=== PATIENT | female | born 1995 | race Caucasian/White ===

== ENCOUNTER 2022-03-27 10:17 | Emergency (ER) | payer OTHER ==
[2022-03-27 10:35] VITALS: BP 123/78; PULSE 93; RESP 16; TEMP 98.2
--- NOTE | 2022-03-27 10:47 | ED ---
Upper Extremity HPI - General Chief Complaint: Extremity Injury, Upper Stated Complaint: [facility]-finger injury Time Seen by Provider: 03/27/22 10:37 Source: patient, RN notes reviewed Mode of arrival: ambulatory Limitations: no limitations - History of Present Illness Initial Comments: This is a 26-year-old female who presents to the emergency department for left pinky pain. 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 One of the bottles fell and landed on her finger. States that she noticed immediate bruising to the left pinky. She has since had difficulty moving it, and states that she wanted make sure it was not broken. Denies any fevers, chills, sore throat, cough, dyspnea, chest pain, pal pitations, abdominal pain, nausea, vomiting, diarrhea, back pain, or headaches. MD Complaint: Injury to:: left, finger Other Injuries: none Place: work - Related Data Allergies Allergy/AdvReac Type Severity Reaction Status Date / Time No Known Allergies Allergy Verified 03/27/22 10:35 Review of Systems ROS Statement: Those systems with pertinent positive or pertinent negative responses have been documented in the HPI. ROS Other: All systems not noted in ROS Statement are negative. Past Medical History Past Medical History: No Reported History History of Any Multi-Drug Resistant Organisms: None Reported Past Surgical History: No Surgical Hx Reported Past Psychological History: No Psychological Hx Reported Smoking Status: Never smoker Past Alcohol Use History: Occasional Past Drug Use History: None Reported General Exam Limitations: no limitations General appearance: alert, in no apparent distress Head exam: Present: atraumatic, normocephalic, normal inspection Respiratory exam: Present: normal lung sounds bilaterally. Absent: respiratory distress, wheezes, rales, rhonchi, stridor Cardiovascular Exam: Present: regular rate, normal rhythm, normal heart sounds. Absent: systolic murmur, diastolic murmur, rubs, gallop, clicks Extremities exam: Present: other (Mild swelling and ecchymosis to the palmar aspect of the left fifth finger. Full active and passive range of motion.) Neurological exam: Present: alert, oriented X3, CN II-XII intact Psychiatric exam: Present: normal affect, normal mood Skin exam: Present: warm, dry, intact, normal color. Absent: rash Course Vital Signs 03/27/22 10:31 Temperature 98.2 F Pulse Rate 93 Respiratory 16 Rate Blood Pressure 123/78 O2 Sat by Pulse 100 Oximetry Medical Decision Making - Medical Decision Making This is a 26-year-old female who presents to the emergency department for an injury to the left pinky finger. X-ray obtained revealing no acute osseous abnormalities. Advised the patient to apply ice for 10 minutes every 2-3 hours and to alternate with ibuprofen and Tylenol as needed for pain relief. She can wrap the hand or use a finger splint if she finds that beneficial. Return precautions reviewed in depth, the patient is instructed to return to the emergency department with any new, worsening, or concerning symptoms. Patient verbalized understanding. This case was discussed in detail with the attending ED physician. Presentation, findings, and treatment plan discussed in detail as well. - Radiology Data Radiology results: report reviewed, image reviewed Disposition Clinical Impression: Jammed interphalangeal joint of finger of left hand Disposition: HOME SELF-CARE Instructions (If sedation given, give patient instructions): Jammed Finger (ED) Additional Instructions: Return to the emergency department with any new, worsening, or concerning symptoms. Apply ice for 15-20 minutes every 2-3 hours and take ibuprofen and Tylenol as needed for pain relief. You may wrap the hand or use a finger splint if you find it helpful. Is patient prescribed a controlled substance at d/c from ED?: No Referrals: None,Stated [Primary Care Provider] - 1-2 days
--- NOTE | 2022-03-27 11:20 | XR ---
EXAMINATION TYPE: XR finger LT DATE OF EXAM: 03/27/2022 11:00 AM INDICATION: Patient age:Female; 26 years old; Reason for study: Injury to left pinky finger; [facility]. COMPARISON: None TECHNIQUE: Frontal, lateral and oblique views of the left fifth digit were obtained. FINDINGS: Normal alignment of the visualized joints. No acute osseous pathology is identified. No os seous erosions. There is focal soft tissue swelling along the palmar aspect of the mid fifth digit. N o radiopaque foreign bodies. IMPRESSION: 1. No acute osseous pathology. 2. Focal soft tissue swelling along the palmar aspect of the mid fifth digit.
== END 2022-03-27 11:40 | disposition home or self-care (01) ==
LOC: EC 10:17
DX: S90.122A Contusion of left lesser toe(s) without damage to nail, initial encounter (principal); W23.0XXA Caught, crushed, jammed, or pinched between moving objects, initial encounter; Y92.512 Supermarket, store or market as the place of occurrence of the external cause; Y99.0 Civilian activity done for income or pay
CPT/HCPCS: 99283